=== PATIENT | female | born 1985 | race Caucasian/White ===

== ENCOUNTER 2018-03-25 10:05 | Emergency (ER) | payer SELFPAY ==
--- NOTE | 2018-03-25 11:29 | RAD REPORT ---
EXAM DESCRIPTION: US - Abdomen Exam Limited - 03/25/2018 10:49 am CLINICAL HISTORY: Abdominal pain COMPARISON: None. FINDINGS: No gallstones, sludge or other abnormalities within the gallbladder lumen. There is no wal l thickening or pericholecystic fluid. No common duct stone or biliary tree dilatation identified. IMPRESSION: Normal gallbladder and biliary tree ultrasound.
[2018-03-25] MEDS ORDERED: ONDANSETRON 4 MG/2 ML VIAL ONE (12:19)
[2018-03-25] MEDS ORDERED: MORPHINE 4 MG/ML SYR ONE (12:19)
[2018-03-25] MEDS ORDERED: FAMOTIDINE 20 MG/2 ML VIAL IV ONE (12:19)
[2018-03-25] MEDS ORDERED: NA CHLORIDE 0.9% 1,000 ML ONE (12:35)
[2018-03-25] MEDS ORDERED: DIPHENHYDRAMINE 50 MG/ML VIAL ONE (12:42)
[2018-03-25 12:52] LABS: Absolute Lymphocytes (CBC) 2.1 K/uL (0.7-4.9); Absolute Monocytes 0.5 K/uL (0.1-1.3); Absolute Neutrophil 4.4 K/uL (1.8-8.0); Basophils % 0.5 % (0-1.3); Eosinophils % 2.7 % (0-4.4); Hematocrit 41.4 % (36.0-45.0); Lymphocytes % 29.8 % (15.3-44.8); MCH 32.8 pg (27.0-35.0); MCV 93.5 fL (80-100); MPV 8.3 fL (7.6-11.3); Monocytes % 6.6 % (3.3-12.3); RBC Red Blood Cell Count 4.42 M/uL (3.86-4.86)
[2018-03-25 12:58] LABS: Urine Blood NEGATIVE (NEG); Urine Glucose NEGATIVE (NEG); Urine Protein NEGATIVE (NEG); Urine Specific Gravity 1.015 (1.005-1.030)
[2018-03-25 13:13] LABS: ALT/SGPT 16 U/L (12-78); AST/SGOT 7 U/L (15-37); Albumin 4.1 g/dL (3.4-5.0); Alkaline Phosphatase 53 U/L (45-117); BUN Blood Urea Nitrogen 13 mg/dL (7-18); Bicarbonate 27 mmol/L (21-32); Bilirubin Direct 0.1 mg/dL (0-0.2); Bilirubin Total 0.5 mg/dL (0.2-1.0); Glucose Level 107 mg/dL (74-106); Lipase 153 U/L (73-393); Potassium 3.6 mmol/L (3.5-5.1); Protein, Total 7.7 g/dL (6.4-8.2); Sodium Level 138 mmol/L (136-145)
--- NOTE | 2018-03-25 13:56 | RAD REPORT ---
EXAM DESCRIPTION: CT - Abdomen Pelvis W Contrast - 03/25/2018 1:29 pm CLINICAL HISTORY: Abdominal pain right upper quadrant pain with vomiting COMPARISON: none. TECHNIQUE: Computed axial tomography of the abdomen pelvis was obtained. 100 cc Isovue-300 was admin istered intravenously. Oral contrast was not requested which limits evaluation of bowel. All CT scans are performed using dose optimization technique as appropriate and may include automated exposure control or mA/KV adjustment according to patient size. FINDINGS: The liver, spleen, pancreas, adrenal and right kidney appear unremarkable. A 2 millimeter nonobstructing left renal calculus Vicarious excretion contrast in the gallbladder seen Small umbilical hernia is noted There is no evidence of diverticulitis. A 2 centimeter right ovarian cyst is present without signific ant free-fluid IMPRESSION: A 2 centimeter right ovarian cyst is present without significant free-fluid 2 millimeter nonobstructing left renal calculus
--- NOTE | 2018-03-25 14:06 | EDPHYS ---
Physician Documentation [facility] Name: Kizzy Zamarripa Age: 32 yrs Sex: Female : 1985 Arrival Date: 03/25/2018 Time: 10:09 Bed 15 Private MD: None, None ED Physician Lorenzo Domingo HPI: 03/25 12:56 This 32 yrs old Female presents to ER via Wheelchair with complaints of pm1 Abdominal Pain. 12:56 The patient presents with abdominal pain in the epigastric area. pm1 12:56 Onset: The symptoms/episode began/occurred yesterday. The symptoms do not radiate. pm1 Associated signs and symptoms: Pertinent negatives: nausea, vomiting, and diarrhea. The symptoms are described as achy. Modifying factors: The symptoms are alleviated by nothing, the symptoms are aggravated by food. Severity of pain: in the emergency department the pain is unchanged. The patient has not experienced similar symptoms in the past. The patient has been recently seen by a physician: Seen yesterday at [place] [facility] with the same complaints. Patient had labs and CT performed and was told that she will need her gallbladder removed. Patient was discharged home with pain medications. 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 - Social history:: Smoking status: Patient/guardian denies using tobacco. - Ebola Screening: : Patient negative for fever greater than or equal to 101.5 degrees Fahrenheit, and additional compatible Ebola Virus Disease symptoms Patient denies exposure to infectious person Patient denies travel to an Ebola-affected area in the 21 days before illness onset No symptoms or risks identified at this time. ROS: 12:56 Constitutional: Negative for fever, chills, and weight loss, Eyes: Negative for injury, pm1 pain, redness, and discharge, ENT: Negative for injury, pain, and discharge, Neck: Negative for injury, pain, and swelling, Cardiovascular: Negative for chest pain, palpitations, and edema, Respiratory: Negative for shortness of breath, cough, wheezing, and pleuritic chest pain. 12:56 : Negative for injury, bleeding, discharge, and swelling, MS/Extremity: Negative for injury and deformity, Skin: Negative for injury, rash, and discoloration, Neuro: Negative for headache, weakness, numbness, tingling, and seizure. 12:56 Abdomen/GI: Positive for abdominal pain, Negative for nausea, vomiting, and diarrhea. 12:56 Back: Positive for Right flank pain yesterday, not present today. Exam: 12:56 Constitutional: This is a well developed, well nourished patient who is awake, alert, pm1 and in no acute distress. Head/Face: Normocephalic, atraumatic. Eyes: Pupils equal round and reactive to light, extra-ocular motions intact. Lids and lashes normal. Conjunctiva and sclera are non-icteric and not injected. Cornea within normal limits. Periorbital areas with no swelling, redness, or edema. ENT: Nares patent. No nasal discharge, no septal abnormalities noted. Tympanic membranes are normal and external auditory canals are clear. Oropharynx with no redness, swelling, or masses, exudates, or evidence of obstruction, uvula midline. Mucous membranes moist. Neck: Trachea midline, no thyromegaly or masses palpated, and no cervical lymphadenopathy. Supple, full range of motion without nuchal rigidity, or vertebral point tenderness. No Meningismus. Chest/axilla: Normal chest wall appearance and motion. Nontender with no deformity. No lesions are appreciated. Cardiovascular: Regular rate and rhythm with a normal S1 and S2. No gallops, murmurs, or rubs. Normal PMI, no JVD. No pulse deficits. Respiratory: Lungs have equal breath sounds bilaterally, clear to auscultation and percussion. No rales, rhonchi or wheezes noted. No increased work of breathing, no retractions or nasal flaring. Abdomen/GI: Soft, non-tender, with normal bowel sounds. No distension or tympany. No guarding or rebound. No evidence of tenderness throughout. Back: No spinal tenderness. No costovertebral tenderness. Full range of motion. Skin: Warm, dry with normal turgor. Normal color with no rashes, no lesions, and no evidence of cellulitis. MS/ Extremity: Pulses equal, no cyanosis. Neurovascular intact. Full, normal range of motion. 12:56 Neuro: Orientation: is normal, Motor: is normal, moves all fours. Vital Signs: 10:26 BP 106 / 88; Pulse 92; Resp 18; Temp 98.8; Pulse Ox 100% on R/A; Weight 90.72 kg; aj Height 5 ft. 2 in. (157.48 cm); 13:18 BP 105 / 74; Pulse 65; Resp 16; Pulse Ox 100% on R/A; mh5 14:30 BP 106 / 74; Pulse 74; Resp 16 S; Temp 98.0(TE); Pulse Ox 99% on R/A; aa5 10:26 Body Mass Index 36.58 (90.72 kg, 157.48 cm) aj MDM: 11:52 Patient medically screened. [facility] 14:03 Data reviewed: vital signs. Data interpreted: Pulse oximetry: on room air is 100 %. pm1 Interpretation: normal. Counseling: I had a detailed discussion with the patient and/or guardian regarding: the historical points, exam findings, and any diagnostic results supporting the discharge/admit diagnosis, lab results, radiology results, the need for outpatient follow up, to return to the emergency department if symptoms worsen or persist or if there are any questions or concerns that arise at home. 03/25 12:03 Order name: Basic Metabolic Panel; Complete Time: 13:16 pm1 03/25 12:03 Order name: CBC with Diff; Complete Time: 13:16 pm1 03/25 12:03 Order name: Creatinine for Radiology; Complete Time: 13:16 pm1 03/25 12:03 Order name: Hepatic Function; Complete Time: 13:16 pm1 03/25 12:03 Order name: Lipase; Complete Time: 13:16 pm1 03/25 12:30 Order name: Urine Dipstick--Ancillary (enter results); Complete Time: 13:16 03/25 10:37 Order name: US Abdomen Limited; Complete Time: 11:53 03/25 12:10 Order name: CT Abd/Pelvis - W/Contrast: IV contrast only; Complete Time: 14:00 pm1 03/25 12:30 Order name: Urine --Ancillary (enter results); Complete Time: 13:16 03/25 12:03 Order name: IV Saline Lock; Complete Time: 12:26 pm1 03/25 12:03 Order name: Labs collected and sent; Complete Time: 12:26 pm1 03/25 12:16 Order name: Urine Dipstick-Ancillary (obtain specimen); Complete Time: 12:25 pm1 03/25 12:16 Order name: Urine Test (obtain specimen); Complete Time: 12:25 pm1 Administered Medications: 12:24 Drug: Zofran 4 mg Route: IVP; Site: right antecubital; aa5 12:26 Follow up: Response: No adverse reaction aa5 12:24 Drug: NS 0.9% 1000 ml Route: IV; Rate: 1000 ml; Site: right antecubital; aa5 13:05 Follow up: IV Status: Completed infusion aa5 12:26 Drug: Pepcid 20 mg Route: IVP; Site: right antecubital; aa5 12:27 Follow up: Response: No adverse reaction aa5 12:27 Drug: morphine 4 mg Route: IVP; Site: right antecubital; aa5 12:29 Follow up: Redness noted to upper arm and pt c/o itching to IV site. FINANCIAL MANAGER was notified aa5 12:30 Drug: Benadryl 25 mg Route: IVP; Site: right antecubital; aa5 13:00 Follow up: Response: No adverse reaction; Marked relief of symptoms; Marked relief of aa5 symptoms. No redness noted to right arm and pt denies itching. Disposition: 03/25/18 14:04 Discharged to Home. Impression: Other ovarian cysts - right. - Condition is Stable. - Discharge Instructions: Ovarian Cyst. - Prescriptions for Pepcid 20 mg Oral Tablet - take 1 tablet by ORAL route every 12 hours for 10 days; 20 tablet. Zofran 4 mg Oral Tablet - take 1 tablet by ORAL route every 12 hours As needed; 20 tablet. - Medication Reconciliation Form, Thank You Letter, Prescription Opioid Use form. - Follow up: Emergency Department; When: As needed; Reason: Worsening of condition. Follow up: Private Physician; When: 2 - 3 days; Reason: Recheck today's complaints, Continuance of care, Re-evaluation by your physician. - Problem is new. - Symptoms have improved. Addendum: 03/28/2018 06:46 Co-signature as Attending Physician, Lorenzo Domingo MD I agree with the assessment and c okeefe plan of care. Signatures: Dispatcher [employer] Jolly Meier RN RN Lorenzo Brock MD MD cha Calderon, Audri RN RN aa5 Jerson Cason, IVETTE FINANCIAL MANAGER pm1 Corrections: (The following items were deleted from the chart) 03/25 14:43 14:04 03/25/2018 14:04 Discharged to Home. Impression: Other ovarian cysts - right. aa5 Condition is Stable. Forms are Medication Reconciliation Form, Thank You Letter, Antibiotic Education, Prescription Opioid Use. Follow up: Emergency Department; When: As needed; Reason: Worsening of condition. Follow up: Private Physician; When: 2 - 3 days; Reason: Recheck today's complaints, Continuance of care, Re-evaluation by your physician. Problem is new. Symptoms have improved. pm1
--- NOTE | 2018-03-25 14:06 | ER ---
Nurse's Notes [facility] Name: Kizzy Zamarripa Age: 32 yrs Sex: Female : 1985 Arrival Date: 03/25/2018 Time: 10:09 Bed 15 Private MD: None, None Diagnosis: Other ovarian cysts-right Presentation: 03/25 10:24 Presenting complaint: Patient states: RUQ abdominal pain and vomiting that started last aj night. Seen in [place] ER yesterday. Had CT and labs, instructed to follow up with surgeon to have gallbladder removed. Transition of care: patient was not received from another setting of care. Onset of symptoms was March 24, 2018. Risk Assessment: Do you want to hurt yourself or someone else? Patient reports no desire to harm self or others. Initial Sepsis Screen: Does the patient meet any 2 criteria? No. Patient's initial sepsis screen is negative. Does the patient have a suspected source of infection? No. Patient's initial sepsis screen is negative. Care prior to arrival: None. 10:24 Method Of Arrival: Wheelchair aj 10:24 Acuity: JODI 3 aj Triage Assessment: 10:26 General: Appears in no apparent distress. comfortable, Behavior is calm, cooperative, aj appropriate for age. Pain: Complains of pain in right lower quadrant. Neuro: Level of Consciousness is awake, alert, obeys commands, Oriented to person, place, time, situation, Appropriate for age. Respiratory: Airway is patent Respiratory effort is even, unlabored, Respiratory pattern is regular, symmetrical. GI: Abdomen is flat, non-distended, Reports upper abdominal pain, nausea, vomiting. Derm: Skin is intact, is healthy with good turgor, Skin is pink, warm \T\ dry. normal. 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 - Social history:: Smoking status: Patient/guardian denies using tobacco. - Ebola Screening: : Patient negative for fever greater than or equal to 101.5 degrees Fahrenheit, and additional compatible Ebola Virus Disease symptoms Patient denies exposure to infectious person Patient denies travel to an Ebola-affected area in the 21 days before illness onset No symptoms or risks identified at this time. Screenin:10 Abuse screen: Denies threats or abuse. Nutritional screening: No deficits noted. aa5 Tuberculosis screening: No symptoms or risk factors identified. Fall Risk None identified. Assessment: 12:10 General: Appears uncomfortable, Behavior is calm, cooperative. Pain: Complains of pain aa5 in right upper quadrant Pain does not radiate. Pain currently is 9 out of 10 on a pain scale. Quality of pain is described as sharp, Pain began 1 day ago. Is continuous. Neuro: Level of Consciousness is awake, alert, obeys commands, Oriented to person, place, time, situation. Cardiovascular: Heart tones S1 S2 present Rhythm is regular. Respiratory: Airway is patent Respiratory effort is even, unlabored, Respiratory pattern is regular, symmetrical. GI: Abdomen is round non-distended, Bowel sounds present X 4 quads. Abd is soft X 4 quads Abdomen is tender to palpation in right upper quadrant Reports nausea, vomiting, Patient currently denies diarrhea. : No signs and/or symptoms were reported regarding the genitourinary system. Denies burning with urination. EENT: No signs and/or symptoms were reported regarding the EENT system. Derm: Skin is pink, warm \T\ dry. Musculoskeletal: Range of motion: intact in all extremities. 13:05 Reassessment: Patient and/or family updated on plan of care and expected duration. Pain aa5 level reassessed. Patient is alert, oriented x 3, equal unlabored respirations, skin warm/dry/pink. Patient states feeling better. Pt sitting up in bed using her cellphone. . General: Appears comfortable. Pain: Pain currently is 7 out of 10 on a pain scale. 14:40 Reassessment: Patient is alert, oriented x 3, equal unlabored respirations, skin aa5 warm/dry/pink. Vital Signs: 10:26 BP 106 / 88; Pulse 92; Resp 18; Temp 98.8; Pulse Ox 100% on R/A; Weight 90.72 kg; aj Height 5 ft. 2 in. (157.48 cm); 13:18 BP 105 / 74; Pulse 65; Resp 16; Pulse Ox 100% on R/A; mh5 14:30 BP 106 / 74; Pulse 74; Resp 16 S; Temp 98.0(TE); Pulse Ox 99% on R/A; aa5 10:26 Body Mass Index 36.58 (90.72 kg, 157.48 cm) aj ED Course: 10:09 Patient arrived in ED. mr 10:09 None, None is Private Physician. mr 10:25 Triage completed. aj 10:26 Arm band placed on left wrist. Patient placed in waiting room, Patient notified of wait aj time. 10:49 US Abdomen Limited In Process Unspecified. EDMS 11:46 Raisa Uriarte, KIERAN is Primary Nurse. aa5 11:52 Lorenzo Domingo MD is Attending Physician. [facility] 11:53 Jerson Cason NP is PHCP. pm1 12:10 Patient has correct armband on for positive identification. Placed in gown. Bed in low aa5 position. Call light in reach. Side rails up X2. 12:22 Initial lab(s) drawn, by me, sent to lab. Inserted saline lock: 20 gauge in right aa5 antecubital area, using aseptic technique. Blood collected. 12:24 Radiology exam delayed due to lab results not completed at this time. (BUN/Creatinine). 12:25 Urine collected: clean catch specimen, clear. [facility] 13:25 CT completed. Patient tolerated procedure well. Patient moved to CT via wheelchair. vr Patient moved back from CT. 13:30 CT Abd/Pelvis - W/Contrast: IV contrast only In Process Unspecified. EDMS 14:00 No provider procedures requiring assistance completed. aa5 14:40 IV discontinued, intact, bleeding controlled, No redness/swelling at site. Pressure aa5 dressing applied. Administered Medications: 12:24 Drug: Zofran 4 mg Route: IVP; Site: right antecubital; aa5 12:26 Follow up: Response: No adverse reaction aa5 12:24 Drug: NS 0.9% 1000 ml Route: IV; Rate: 1000 ml; Site: right antecubital; aa5 13:05 Follow up: IV Status: Completed infusion aa5 12:26 Drug: Pepcid 20 mg Route: IVP; Site: right antecubital; aa5 12:27 Follow up: Response: No adverse reaction aa5 12:27 Drug: morphine 4 mg Route: IVP; Site: right antecubital; aa5 12:29 Follow up: Redness noted to upper arm and pt c/o itching to IV site. GUNCOTTON PACKER was notified aa5 12:30 Drug: Benadryl 25 mg Route: IVP; Site: right antecubital; aa5 13:00 Follow up: Response: No adverse reaction; Marked relief of symptoms; Marked relief of aa5 symptoms. No redness noted to right arm and pt denies itching. Intake: Outcome: 14:04 Discharge ordered by . pm1 14:40 Discharged to home ambulatory, with significant other. aa5 14:40 Condition: stable 14:40 Discharge instructions given to patient, Instructed on discharge instructions, follow up and referral plans. medication usage, Demonstrated understanding of instructions, follow-up care, medications, Prescriptions given X 2. 14:43 Patient left the ED. aa5 Signatures: Dispatcher [employer] EDJolly Jarrett RN RN aj Anderson, Corey, MD MD cha Rivera, Mary mr Hagler, Raisa Khan RN RN aa5 Lee Ann Barton Patrick, NP GUNCOTTON PACKER pm1 Maggie Cisse [facility] Corrections: (The following items were deleted from the chart) 15:27 12:10 GI: Abdomen is round non-distended, Bowel sounds present X 4 quads. Abd is soft X aa5 4 quads Abdomen is tender to palpation in right upper quadrant aa5
== END 2018-03-25 14:43 | disposition home or self-care (01) ==
LOC: ER 10:05
DX: N83.291 Other ovarian cyst, right side (principal); Z88.2 Allergy status to sulfonamides
CPT/HCPCS: 36415; 74177; 76705; 80048; 80076; 81003; 81025; 83690; 85025; 96361; 96374; 96375; 99284; J2405; J7030; Q9967

== ENCOUNTER 2019-04-15 20:12 | Emergency (ER) | payer SELFPAY ==
--- NOTE | 2019-04-15 20:53 | ER ---
Nurse's Notes [facility] Name: Kizzy Zamarripa Age: 34 yrs Sex: Female : 1985 Arrival Date: 04/15/2019 Time: 20:13 Bed 5 Private MD: Diagnosis: Pain in left shoulder Presentation: 04/15 20:17 Presenting complaint: Patient states: "it's almost been three weeks ago that I fell jd3 down the stairs and hurt my left shoulder. at first I thought I was just sore, but it's hurting now to the point I can't move my shoulder.". Transition of care: patient was not received from another setting of care. Onset of symptoms was April 15, 2019. Risk Assessment: Do you want to hurt yourself or someone else? Patient reports no desire to harm self or others. Initial Sepsis Screen: Does the patient meet any 2 criteria? No. Patient's initial sepsis screen is negative. Does the patient have a suspected source of infection? No. Patient's initial sepsis screen is negative. Care prior to arrival: None. 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 - Social history:: Smoking status: Patient/guardian denies using tobacco. - Ebola Screening: : Patient negative for fever greater than or equal to 101.5 degrees Fahrenheit, and additional compatible Ebola Virus Disease symptoms. - Family history:: not pertinent. Screenin:34 Abuse screen: Denies threats or abuse. Denies injuries from another. Nutritional lp1 screening: No deficits noted. Tuberculosis screening: No symptoms or risk factors identified. Fall Risk None identified. Assessment: 20:33 General: Appears in no apparent distress. Behavior is appropriate for age. Pain: lp1 Complains of pain in left shoulder Pain currently is 7 out of 10 on a pain scale. Quality of pain is described as aching, Aggravated by increased activity, repositioning. Neuro: No deficits noted. Cardiovascular: No deficits noted. Respiratory: No deficits noted. GI: No deficits noted. : No deficits noted. EENT: No signs and/or symptoms were reported regarding the EENT system. Derm: Skin is pink, warm \\T\\ dry. Musculoskeletal: Circulation, motion, and sensation intact. Range of motion: limited in left shoulder. Vital Signs: 20:20 BP 117 / 84; Pulse 101; Resp 17 S; Temp 98.6(TE); Pulse Ox 100% on R/A; Weight 63.5 kg jd3 (R); Height 5 ft. 2 in. (157.48 cm) (R); Pain 7/10; 20:20 Body Mass Index 25.61 (63.50 kg, 157.48 cm) jd3 ED Course: 20:13 Patient arrived in ED. ds1 20:14 Cindy Ford, RN is Primary Nurse. lp1 20:17 Lorenzo Domingo MD is Attending Physician. [facility] 20:18 Triage completed. jd3 20:21 Arm band placed on. jd3 20:34 Sling applied to left arm. lp1 20:36 Patient has correct armband on for positive identification. lp1 20:46 Shoulder Left (2 View) XRAY In Process Unspecified. EDMS 20:53 Daniel Brown MD is Referral Physician. [facility] 21:08 No provider procedures requiring assistance completed. Patient did not have IV access lp1 during this emergency room visit. Administered Medications: 20:50 Not Given (Patient states taking Ibuprofen 800 mg tab FLIGHT PARAMEDIC): Motrin 600 mg PO once lp1 Outcome: 20:53 Discharge ordered by . [facility] 21:08 Discharged to home ambulatory. lp1 21:08 Condition: good 21:08 Discharge instructions given to patient, Instructed on discharge instructions, follow up and referral plans. medication usage, Demonstrated understanding of instructions, follow-up care, medications, Prescriptions given X 3. 21:08 Patient left the ED. lp1 Signatures: Dispatcher [employer] EDPR Lorenzo Domingo MD MD cha Sanford, Demi ds1 Cindy Ford, RN RN lp1 Bill Craig RN RN jd3
--- NOTE | 2019-04-15 20:54 | EDPHYS ---
Physician Documentation [facility] Name: Kizzy Zamarripa Age: 34 yrs Sex: Female : 1985 Arrival Date: 04/15/2019 Time: 20:13 Bed 5 Private MD: ED Physician Lorenzo Domingo HPI: 04/15 20:30 This 34 yrs old Female presents to ER via Ambulatory with complaints of rona Shoulder Pain. 20:30 The patient or guardian complains of decreased range of motion, pain. left shoulder. rona Context: The problem was sustained outdoors, resulted from a fall, The patient experiences decreased range of motion, The patient reports no obvious deformity. Onset: The symptoms/episode began/occurred 3 week(s) ago. Modifying factors: the symptoms are alleviated by nothing. remaining still, shoulder immobilizer, The symptoms are aggravated by movement. Associated signs and symptoms: The patient has no apparent associated signs or symptoms. Severity of symptoms: At their worst the symptoms were mild, moderate, in the emergency department the symptoms are unchanged. Treatment prior to arrival includes: no previous treatment. The patient has not experienced similar symptoms in the past. 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 - Social history:: Smoking status: Patient/guardian denies using tobacco. - Ebola Screening: : Patient negative for fever greater than or equal to 101.5 degrees Fahrenheit, and additional compatible Ebola Virus Disease symptoms. - Family history:: not pertinent. ROS: 20:30 Constitutional: Negative for fever, chills, and weight loss, Eyes: Negative for injury, rona pain, redness, and discharge, ENT: Negative for injury, pain, and discharge, Neck: Negative for injury, pain, and swelling, Cardiovascular: Negative for chest pain, palpitations, and edema, Respiratory: Negative for shortness of breath, cough, wheezing, and pleuritic chest pain, Abdomen/GI: Negative for abdominal pain, nausea, vomiting, diarrhea, and constipation, Back: Negative for injury and pain, : Negative for injury, bleeding, discharge, and swelling, Skin: Negative for injury, rash, and discoloration, Neuro: Negative for headache, weakness, numbness, tingling, and seizure, Psych: Negative for depression, anxiety, suicide ideation, homicidal ideation, and hallucinations, Allergy/Immunology: Negative for hives, rash, and allergies, Endocrine: Negative for neck swelling, polydipsia, polyuria, polyphagia, and marked weight changes, Hematologic/Lymphatic: Negative for swollen nodes, abnormal bleeding, and unusual bruising. 20:30 MS/extremity: Positive for decreased range of motion, pain, tenderness, of the anterior aspect of left shoulder and posterior aspect of left shoulder. Exam: 20:30 Constitutional: This is a well developed, well nourished patient who is awake, alert, rona and in no acute distress. Head/Face: Normocephalic, atraumatic. Eyes: Pupils equal round and reactive to light, extra-ocular motions intact. Lids and lashes normal. Conjunctiva and sclera are non-icteric and not injected. Cornea within normal limits. Periorbital areas with no swelling, redness, or edema. ENT: Nares patent. No nasal discharge, no septal abnormalities noted. Tympanic membranes are normal and external auditory canals are clear. Oropharynx with no redness, swelling, or masses, exudates, or evidence of obstruction, uvula midline. Mucous membranes moist. Neck: Trachea midline, no thyromegaly or masses palpated, and no cervical lymphadenopathy. Supple, full range of motion without nuchal rigidity, or vertebral point tenderness. No Meningismus. Chest/axilla: Normal chest wall appearance and motion. Nontender with no deformity. No lesions are appreciated. Cardiovascular: Regular rate and rhythm with a normal S1 and S2. No gallops, murmurs, or rubs. Normal PMI, no JVD. No pulse deficits. Respiratory: Lungs have equal breath sounds bilaterally, clear to auscultation and percussion. No rales, rhonchi or wheezes noted. No increased work of breathing, no retractions or nasal flaring. Abdomen/GI: Soft, non-tender, with normal bowel sounds. No distension or tympany. No guarding or rebound. No evidence of tenderness throughout. Back: No spinal tenderness. No costovertebral tenderness. Full range of motion. Female : Normal external genitalia. Skin: Warm, dry with normal turgor. Normal color with no rashes, no lesions, and no evidence of cellulitis. Neuro: Awake and alert, GCS 15, oriented to person, place, time, and situation. Cranial nerves II-XII grossly intact. Motor strength 5/5 in all extremities. Sensory grossly intact. Cerebellar exam normal. Normal gait. Psych: Awake, alert, with orientation to person, place and time. Behavior, mood, and affect are within normal limits. 20:30 Musculoskeletal/extremity: Extremities: grossly normal except: noted in the left arm and posterior aspect of left shoulder and anterior aspect of left shoulder and left shoulder: decreased ROM, pain. Vital Signs: 20:20 BP 117 / 84; Pulse 101; Resp 17 S; Temp 98.6(TE); Pulse Ox 100% on R/A; Weight 63.5 kg jd3 (R); Height 5 ft. 2 in. (157.48 cm) (R); Pain 7/10; 20:20 Body Mass Index 25.61 (63.50 kg, 157.48 cm) jd3 MDM: 20:17 Patient medically screened. 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 Impression: Pain in left shoulder. - Condition is Stable. - Discharge Instructions: Arthritis, Shoulder Pain, Shoulder Range of Motion Exercises, Shoulder Pain, [id number]. - Prescriptions for Tylenol- Codeine #3 300-30 mg Oral Tablet - take 2 tablet by ORAL route every 6 hours As needed; 30 tablet. Motrin IB 200 mg Oral Tablet - take 3 tablet by ORAL route every 6 hours As needed as needed with food; 40 tablet. Valium 5 mg Oral Tablet - take 1 tablet by ORAL route every 8 hours As needed; 9 tablet. - Medication Reconciliation Form, Thank You Letter, Antibiotic Education, Prescription Opioid Use form. - Follow up: Private Physician; When: 2 - 3 days; Reason: Recheck today's complaints, Continuance of care, Re-evaluation by your physician. Follow up: Daniel Brown; When: 2 - 3 days; Reason: Recheck today's complaints, Continuance of care, Re-evaluation by your physician. - Problem is new. - Symptoms have improved. Signatures: Dispatcher [employer]DA[employer] Lorenzo Domingo MD MD cha Pena, Laura RN RN lp1 Bill Craig RN RN jd3 Corrections: (The following items were deleted from the chart) 21:08 20:53 04/15/2019 20:53 Discharged to Home. Impression: Pain in left shoulder. Condition lp1 is Stable. Discharge Instructions: Arthritis, Shoulder Pain, Shoulder Range of Motion Exercises, Shoulder Pain, [id number]. Prescriptions for Tylenol-Codeine #3 300-30 mg Oral Tablet - take 2 tablet by ORAL route every 6 hours As needed; 30 tablet, Motrin IB 200 mg Oral Tablet - take 3 tablet by ORAL route every 6 hours As needed as needed with food; 40 tablet. and Forms are Medication Reconciliation Form, Thank You Letter, Antibiotic Education, Prescription Opioid Use. Follow up: Private Physician; When: 2 - 3 days; Reason: Recheck today's complaints, Continuance of care, Re-evaluation by your physician. Follow up: Daniel Brown; When: 2 - 3 days; Reason: Recheck today's complaints, Continuance of care, Re-evaluation by your physician. Problem is new. Symptoms have improved. rona
[2019-04-15 21:14] VITALS: BP 117/84; TEMP 98.6; O2SAT 100
--- NOTE | 2019-04-16 13:13 | RAD REPORT ---
EXAM DESCRIPTION: RAD - Shoulder Left 2 View - 04/15/2019 8:47 pm CLINICAL HISTORY: PAIN COMPARISON: No comparisons FINDINGS: No acute fracture or dislocation seen.
== END 2019-04-15 21:08 | disposition home or self-care (01) ==
LOC: ER 20:12
DX: M25.512 Pain in left shoulder (principal); Z88.0 Allergy status to penicillin; Z88.2 Allergy status to sulfonamides
CPT/HCPCS: 99283

== ENCOUNTER 2019-10-10 14:24 | Emergency (ER) | payer SELFPAY ==
[2019-10-10] MEDS ORDERED: HYDROCODONE/APAP 10/325 TAB ONE (15:38)
[2019-10-10 16:12] VITALS: BP 141/86; TEMP 98.1; O2SAT 98
--- NOTE | 2019-10-16 13:24 | EDPHYS ---
Physician Documentation [facility] Name: Kizzy Zamarripa Age: 34 yrs Sex: Female : 1985 Arrival Date: 10/10/2019 Time: 14:27 Bed 24 Private MD: None, None ED Physician Donnell Muller HPI: 10/09 15:20 This 34 yrs old Female presents to ER via Ambulatory with complaints of pm1 Dental pain. 15:20 The patient presents with pain. The problem is located in the upper left second molar, pm1 lower left second molar and lower right third molar. Onset: The symptoms/episode began/occurred this morning, dental issues present about 1 year ago and pain subsided. Dental pain with awakening this AM. Duration: The symptoms are continuous. Modifying factors: The symptoms are alleviated by nothing, the symptoms are aggravated by nothing. Associated signs and symptoms: Pertinent negatives: chills, dysphagia, fever, inability to eat, swelling, vomiting. Severity of symptoms: in the emergency department the symptoms are actually worse. The patient has not recently seen a physician. 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 - Social history:: Smoking status: Patient/guardian denies using tobacco, the patient reports quitting approximately 1 years ago. ROS: 15:20 Constitutional: Negative for fever, chills, and weight loss. pm1 15:20 Neck: Negative for injury, pain, and swelling, Cardiovascular: Negative for chest pain, palpitations, and edema, Respiratory: Negative for shortness of breath, cough, wheezing, and pleuritic chest pain, Abdomen/GI: Negative for abdominal pain, nausea, vomiting, diarrhea, and constipation, Back: Negative for injury and pain, MS/Extremity: Negative for injury and deformity, Skin: Negative for injury, rash, and discoloration, Neuro: Negative for headache, weakness, numbness, tingling, and seizure. 15:20 ENT: Positive for dental pain, ear pain, Negative for sore throat, difficulty swallowing, difficulty handling secretions, hoarseness. Exam: 15:20 Constitutional: This is a well developed, well nourished patient who is awake, alert, pm1 and in no acute distress. Head/Face: Normocephalic, atraumatic. 15:20 Neck: Trachea midline, no thyromegaly or masses palpated, and no cervical lymphadenopathy. Supple, full range of motion without nuchal rigidity, or vertebral point tenderness. No Meningismus. Chest/axilla: Normal chest wall appearance and motion. Nontender with no deformity. No lesions are appreciated. 15:20 Skin: Warm, dry with normal turgor. Normal color with no rashes, no lesions, and no evidence of cellulitis. MS/ Extremity: Pulses equal, no cyanosis. Neurovascular intact. Full, normal range of motion. 15:20 ENT: External ear(s): are unremarkable, Ear canal(s): are normal, TM's: are normal, Mouth: is normal, no abscess, no drooling, (-) tongue elevation (-) trismus no acute changes, Lips: normal, Oral mucosa: normal, pink and intact, moist, Gums: normal with healthy appearance, Tongue: is normal. 15:20 Cardiovascular: Exam negative for acute changes, Rate: normal, Rhythm: regular, Pulses: no pulse deficits are appreciated. 15:20 Respiratory: Exam negative for acute changes, respiratory distress, shortness of breath, wheezing. 15:20 Abdomen/GI: Exam negative for acute changes, Inspection: abdomen appears normal, Palpation: abdomen is soft and non-tender, in all quadrants. 15:20 Neuro: Exam negative for acute changes, Orientation: is normal, Mentation: is normal, Motor: is normal, moves all fours. Vital Signs: 14:42 BP 141 / 86; Pulse 110; Resp 18; Temp 98.1; Pulse Ox 98% ; Weight 86.18 kg; Height 5 iw ft. 2 in. (157.48 cm); Pain 10/10; 14:42 Body Mass Index 34.75 (86.18 kg, 157.48 cm) iw MDM: 15:13 Patient medically screened. pm1 15:19 Data reviewed: vital signs. Data interpreted: Pulse oximetry: on room air is 98 %. pm1 Interpretation: normal. Counseling: I had a detailed discussion with the patient and/or guardian regarding: the historical points, exam findings, and any diagnostic results supporting the discharge/admit diagnosis, the need for outpatient follow up, for definitive care, a dentist, to return to the emergency department if symptoms worsen or persist or if there are any questions or concerns that arise at home. 15:20 ED course: COMMUNITY HEALTH NURSE STAFF aware reviewed. pm1 15:20 ED course: Patient with allergies to PCN and sulfa, therefore will discharge patient pm1 home with clindamycin and for follow up with dentist. Administered Medications: 15:34 Drug: [place] 10 mg-325 mg 1 tabs Route: PO; ah Disposition: 15:54 Co-signature as Attending Physician, Donnell Muller MD. rn Disposition: 10/10/19 15:20 Discharged to Home. Impression: Dental caries. - Condition is Stable. - Discharge Instructions: Dental Pain. - Prescriptions for Clindamycin HCl 300 mg Oral Capsule - take 1 capsule by ORAL route every 6 hours for 10 days; 40 capsule. Tylenol- Codeine #3 300-30 mg Oral Tablet - take 2 tablets by ORAL route every 6 hours As needed; 20 tablet. - Medication Reconciliation Form, Thank You Letter, Antibiotic Education, Prescription Opioid Use form. - Follow up: Emergency Department; When: As needed; Reason: Worsening of condition. Follow up: Private Physician; When: 2 - 3 days; Reason: Recheck today's complaints, Continuance of care, Re-evaluation by your physician. - Problem is new. - Symptoms have improved. Signatures: Priscilla Roblero RN RN Donnell Muller MD MD rn Calderon, Audri RN RN aa5 Jerson Cason NP MOCK UP BUILDER pm1 Karen Navarro RN RN Corrections: (The following items were deleted from the chart) 15:51 15:20 10/10/2019 15:20 Discharged to Home. Impression: Dental caries. Condition is ah Stable. Forms are Medication Reconciliation Form, Thank You Letter, Antibiotic Education, Prescription Opioid Use. Follow up: Emergency Department; When: As needed; Reason: Worsening of condition. Follow up: Private Physician; When: 2 - 3 days; Reason: Recheck today's complaints, Continuance of care, Re-evaluation by your physician. Problem is new. Symptoms have improved. pm1
--- NOTE | 2019-10-16 13:24 | ER ---
Nurse's Notes [facility] Name: Kizzy Zamarripa Age: 34 yrs Sex: Female : 1985 Arrival Date: 10/10/2019 Time: 14:27 Bed 24 Private MD: None, None Diagnosis: Dental caries Presentation: 10/09 14:42 Chief complaint: Patient states: pain to left upper and lower teeth, has several broken iw teeth, woke up in extreme pain this morning. Coronavirus screen: Proceed with normal triage. Patient denies a cough. Patient denies shortness of breath or difficulty breathing. Patient denies measured and/or subjective temperature greater than 100.4F prior to today's visit. Patient denies travel on a cruise ship or to a country the [facility]NOTE 3] currently lists as an affected area. Patient denies contact with known and/or suspected case of COVID-19. Ebola Screen: Patient negative for fever greater than or equal to 101.5 degrees Fahrenheit, and additional compatible Ebola Virus Disease symptoms Patient denies exposure to infectious person. Patient denies travel to an Ebola-affected area in the 21 days before illness onset. No symptoms or risks identified at this time. Initial Sepsis Screen: Does the patient meet any 2 criteria? No. Patient's initial sepsis screen is negative. Does the patient have a suspected source of infection? No. Patient's initial sepsis screen is negative. Risk Assessment: Do you want to hurt yourself or someone else? Patient reports no desire to harm self or others. Onset of symptoms was October 10, 2019. 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 - Social history:: Smoking status: Patient/guardian denies using tobacco, the patient reports quitting approximately 1 years ago. Screenin:21 Abuse screen: Denies threats or abuse. Denies injuries from another. Nutritional iw screening: No deficits noted. Tuberculosis screening: No symptoms or risk factors identified. Fall Risk None identified. Assessment: 15:20 General: Appears uncomfortable, Behavior is cooperative, anxious. Pain: Complains of iw pain in left cheek and left jaw Pain currently is 10 out of 10 on a pain scale. Neuro: Level of Consciousness is awake, alert, obeys commands, Oriented to person, place, time, situation, Moves all extremities. Cardiovascular: Patient's skin is warm and dry. Respiratory: Respiratory effort is even, unlabored, Respiratory pattern is regular. Derm: Skin is intact, is healthy with good turgor. Musculoskeletal: Range of motion: intact in all extremities. Vital Signs: 14:42 BP 141 / 86; Pulse 110; Resp 18; Temp 98.1; Pulse Ox 98% ; Weight 86.18 kg; Height 5 iw ft. 2 in. (157.48 cm); Pain 10/10; 14:42 Body Mass Index 34.75 (86.18 kg, 157.48 cm) iw ED Course: 14:27 Patient arrived in ED. mr 14:27 None, None is Private Physician. mr 14:43 Triage completed. iw 14:44 Arm band placed on. iw 15:13 Jerson Cason NP is PHCP. pm1 15:13 Donnell Muller MD is Attending Physician. pm1 15:21 Patient has correct armband on for positive identification. iw 15:29 Karen Navarro, RN is Primary Nurse. 15:51 No provider procedures requiring assistance completed. Patient did not have IV access ah during this emergency room visit. Administered Medications: 15:34 Drug: [place] 10 mg-325 mg 1 tabs Route: PO; Outcome: 15:20 Discharge ordered by . pm1 15:50 Discharged to home ambulatory. 15:50 Condition: good 15:50 Discharge instructions given to patient, Instructed on discharge instructions, follow up and referral plans. medication usage, Demonstrated understanding of instructions, follow-up care, medications, Prescriptions given X 2. 15:51 Patient left the ED. Signatures: Octavia Cowan Irene, RN RN Jerson Cason NP PESTICIDE CHEMIST pm1 Karen Navarro RN RN
== END 2019-10-10 15:51 | disposition home or self-care (01) ==
LOC: ER 14:24
DX: K02.9 Dental caries, unspecified (principal); Z88.0 Allergy status to penicillin; Z88.2 Allergy status to sulfonamides; Z87.891 Personal history of nicotine dependence
CPT/HCPCS: 99283

== ENCOUNTER 2020-05-27 09:31 | Emergency (ER) | payer SELFPAY ==
[2020-05-27] MEDS ORDERED: HYDROCODONE/APAP 10/325 TAB ONE (12:46)
[2020-05-27] MEDS ORDERED: LIDOCAINE VISCOUS 2% SOLN 15 ML UDC ONE (13:08)
--- NOTE | 2020-05-27 13:14 | ER ---
Nurse's Notes [facility] Name: Kizzy Zamarripa Age: 35 yrs Sex: Female : 1985 Arrival Date: 05/27/2020 Time: 09:34 Bed 28 Private MD: Diagnosis: Puncture wound with foreign body of left cheek and temporomandibular area;Cellulitis of face-left cheek Presentation: 05/27 09:42 Chief complaint: Patient states: L sided facial swelling that began yesterday. Pt ss reports she got the L side of her cheek pierced two days ago. Coronavirus screen: Client denies travel out of the [place] in the last 14 days. Ebola Screen: Patient denies exposure to infectious person. Patient denies travel to an Ebola-affected area in the 21 days before illness onset. Initial Sepsis Screen: Does the patient meet any 2 criteria? No. Patient's initial sepsis screen is negative. Does the patient have a suspected source of infection? No. Patient's initial sepsis screen is negative. Risk Assessment: Do you want to hurt yourself or someone else? Patient reports no desire to harm self or others. Onset of symptoms was May 26, 2020. 09:42 Method Of Arrival: Ambulatory 09:42 Acuity: JODI 3 ss Historical: - Allergies: 09:44 PENICILLINS; ss 09:44 Sulfa (Sulfonamide Antibiotics); ss - Home Meds: 09:44 None [Active]; ss - PMHx: 09:44 None; ss - PSHx: 09:44 Tubal ligation; ss - Immunization history:: Adult Immunizations up to date. - Social history:: Smoking status: Reported history of juuling and/or vaping. Screenin:20 Abuse screen: Denies threats or abuse. Nutritional screening: No deficits noted. vg1 Tuberculosis screening: No symptoms or risk factors identified. Fall Risk None identified. Assessment: 12:20 General: Appears in no apparent distress. comfortable, Behavior is calm, cooperative. vg1 Pain: Complains of pain in left cheek and left eye. Pain currently is 10 out of 10 on a pain scale. Pain began yesterday. Neuro: Level of Consciousness is awake, alert, obeys commands, Oriented to person, place, time, situation. Cardiovascular: Patient's skin is warm and dry. Respiratory: Reports cant breath through nose. Airway is patent Respiratory effort is even, unlabored, Respiratory pattern is regular, symmetrical. GI: No signs and/or symptoms were reported involving the gastrointestinal system. : No signs and/or symptoms were reported regarding the genitourinary system. EENT: Nares are clear Oral mucosa is moist. Derm: left cheek and left eye swollen. Redness noted on left cheek. Musculoskeletal: Circulation, motion, and sensation intact. Vital Signs: 09:42 BP 119 / 62; Pulse 95; Resp 15; Temp 98.1(TE); Pulse Ox 100% on R/A; Height 5 ft. 2 in. ss (157.48 cm); Pain 8/10; 12:25 BP 110 / 66; Pulse 75; Resp 18; Pulse Ox 100% on R/A; vg1 13:08 BP 118 / 77; Pulse 70; Resp 16; Pulse Ox 100% on R/A; vg1 ED Course: 09:34 Patient arrived in ED. rg4 09:44 Triage completed. ss 09:44 Arm band placed on right wrist. ss 09:48 Lary Castellanos FNP-C is PHCP. kb 09:48 Franco Negrete MD is Attending Physician. kb 12:12 Lee Ann Ruiz, RN is Primary Nurse. vg1 12:20 Patient has correct armband on for positive identification. Bed in low position. Call vg1 light in reach. 13:09 Cheek piercing removal. vg1 13:23 Patient did not have IV access during this emergency room visit. vg1 Administered Medications: 12:35 Drug: [place] 10 mg-325 mg 1 tabs {Note: rass 0.} Route: PO; vg1 13:22 Follow up: Response: No adverse reaction; RASS: Alert and Calm (0) vg1 12:35 Drug: Clindamycin 300 mg Route: PO; vg1 13:22 Follow up: Response: No adverse reaction vg1 12:57 Drug: Viscous Lidocaine Liquid (4 %) 5 ml Route: Mucous Membrane; vg1 13:22 Follow up: Response: No adverse reaction vg1 Outcome: 13:13 Discharge ordered by . kb 13:22 Discharged to home ambulatory. vg1 13:22 Condition: stable 13:22 Discharge instructions given to patient, Instructed on discharge instructions, follow up and referral plans. medication usage, Demonstrated understanding of instructions, follow-up care, medications, Prescriptions given X 2. 13:24 Patient left the ED. vg1 Signatures: Lary Castellanos FNP-C FNP-Ckb Smirch, Shelby RN RN ss Kiah Ruiz4 Lee Ann Ruiz RN RN vg1 Corrections: (The following items were deleted from the chart) 09:47 09:42 Pulse 95bpm; Resp 15bpm; Pulse Ox 100% RA; Temp 98.1F Temporal; Height 5 ft. 2 ss in.; Pain 8/10; ss
--- NOTE | 2020-05-27 13:14 | EDPHYS ---
Physician Documentation [facility] Name: Kizzy Zamarripa Age: 35 yrs Sex: Female : 1985 Arrival Date: 05/27/2020 Time: 09:34 Bed 28 Private MD: ED Physician Franco Negrete HPI: 05/27 10:36 This 35 yrs old Female presents to ER via Ambulatory with complaints of kb Facial Swelling. 10:40 the patient presents with a swollen area of the left cheek. Description: swollen. kb Onset: The symptoms/episode began/occurred yesterday. Possible cause(s): piercing. Associated signs and symptoms: Pertinent positives: swelling, Pertinent negatives: discharge, drainage, erythema, foreign body sensation, fever, headache, nausea, shortness of breath, vomiting. Modifying factors: the symptoms are alleviated by nothing, the symptoms are aggravated by pressure, touching. Severity of symptoms: At their worst the symptoms were moderate, in the emergency department the symptoms are unchanged. The patient has experienced a previous episode. The patient has not recently seen a physician. Pt reports she got her cheek pierced 2 days ago and it started swelling yesterday. . Historical: - Allergies: 09:44 PENICILLINS; ss 09:44 Sulfa (Sulfonamide Antibiotics); ss - Home Meds: 09:44 None [Active]; ss - PMHx: 09:44 None; ss - PSHx: 09:44 Tubal ligation; ss - Immunization history:: Adult Immunizations up to date. - Social history:: Smoking status: Reported history of juuling and/or vaping. ROS: 10:27 Constitutional: Negative for fever, chills, and weight loss, Cardiovascular: Negative kb for chest pain, palpitations, and edema, Respiratory: Negative for shortness of breath, cough, wheezing, and pleuritic chest pain, Abdomen/GI: Negative for abdominal pain, nausea, vomiting, diarrhea, and constipation, MS/Extremity: Negative for injury and deformity, Neuro: Negative for headache, weakness, numbness, tingling, and seizure. 10:27 Skin: Positive for swelling, of the left cheek. Exam: 10:27 Constitutional: This is a well developed, well nourished patient who is awake, alert, kb and in no acute distress. Chest/axilla: Normal chest wall appearance and motion. Nontender with no deformity. No lesions are appreciated. Cardiovascular: Regular rate and rhythm with a normal S1 and S2. No gallops, murmurs, or rubs. Normal PMI, no JVD. No pulse deficits. Respiratory: Lungs have equal breath sounds bilaterally, clear to auscultation and percussion. No rales, rhonchi or wheezes noted. No increased work of breathing, no retractions or nasal flaring. Abdomen/GI: Soft, non-tender, with normal bowel sounds. No distension or tympany. No guarding or rebound. No evidence of tenderness throughout. MS/ Extremity: Pulses equal, no cyanosis. Neurovascular intact. Full, normal range of motion. Neuro: Awake and alert, GCS 15, oriented to person, place, time, and situation. Cranial nerves II-XII grossly intact. Motor strength 5/5 in all extremities. Sensory grossly intact. Cerebellar exam normal. Normal gait. 10:27 Head/face: Noted is no obvious of injury or deformity except swelling, that is moderate, of the left cheek, tenderness, that is moderate, of the left cheek. Vital Signs: 09:42 BP 119 / 62; Pulse 95; Resp 15; Temp 98.1(TE); Pulse Ox 100% on R/A; Height 5 ft. 2 in. ss (157.48 cm); Pain 8/10; 12:25 BP 110 / 66; Pulse 75; Resp 18; Pulse Ox 100% on R/A; vg1 13:08 BP 118 / 77; Pulse 70; Resp 16; Pulse Ox 100% on R/A; vg1 Procedures: 13:12 Foreign Body Removal: piece of jewelry, from the left left cheek, by using a hemostat, kb Dressinx4s were used to dress the wound, The patient tolerated the removal well. MDM: 09:49 Patient medically screened. kb 10:27 Data reviewed: vital signs, nurses notes. Data interpreted: Pulse oximetry: on room air kb is 100 %. Interpretation: normal. 12:58 Counseling: I had a detailed discussion with the patient and/or guardian regarding: the kb historical points, exam findings, and any diagnostic results supporting the discharge/admit diagnosis, the need for outpatient follow up, a family practitioner, to return to the emergency department if symptoms worsen or persist or if there are any questions or concerns that arise at home. Administered Medications: 12:35 Drug: Willow 10 mg-325 mg 1 tabs {Note: rass 0.} Route: PO; vg1 13:22 Follow up: Response: No adverse reaction; RASS: Alert and Calm (0) vg1 12:35 Drug: Clindamycin 300 mg Route: PO; vg1 13:22 Follow up: Response: No adverse reaction vg1 12:57 Drug: Viscous Lidocaine Liquid (4 %) 5 ml Route: Mucous Membrane; vg1 13:22 Follow up: Response: No adverse reaction vg1 Disposition: 05/28 07:28 Co-signature as Attending Physician, Franco Negrete MD I agree with the assessment and kdr plan of care. Disposition: 05/27/20 13:13 Discharged to Home. Impression: Puncture wound with foreign body of left cheek and temporomandibular area, Cellulitis of face - left cheek. - Condition is Stable. - Discharge Instructions: Cellulitis, Adult, [id number]. - Prescriptions for Clindamycin HCl 300 mg Oral Capsule - take 1 capsule by ORAL route every 6 hours for 10 days; 40 capsule. Ibuprofen 800 mg Oral Tablet - take 1 tablet by ORAL route every 8 hours As needed take with food; 30 tablet. - Medication Reconciliation Form, Thank You Letter, Antibiotic Education, Prescription Opioid Use form. - Follow up: Emergency Department; When: As needed; Reason: Worsening of condition. Follow up: Private Physician; When: 2 - 3 days; Reason: Recheck today's complaints, Continuance of care, Re-evaluation by your physician. Signatures: Lary Castellanos, DANIEL-C CONCESSION STAND ATTENDANT-Franco Valadez MD MD kdr Smirch, Shelby, RN RN ss Garcia, Victoria, RN RN vg1 Corrections: (The following items were deleted from the chart) 05/27 13:24 13:13 05/27/2020 13:13 Discharged to Home. Impression: Puncture wound with foreign body vg1 of left cheek and temporomandibular area; Cellulitis of face - left cheek. Condition is Stable. Discharge Instructions: Cellulitis, Adult, [id number]. Prescriptions for Clindamycin HCl 300 mg Oral Capsule - take 1 capsule by ORAL route every 6 hours for 10 days; 40 capsule, Ibuprofen 800 mg Oral Tablet - take 1 tablet by ORAL route every 8 hours As needed take with food; 30 tablet. and Forms are Medication Reconciliation Form, Thank You Letter, Antibiotic Education, Prescription Opioid Use. Follow up: Emergency Department; When: As needed; Reason: Worsening of condition. Follow up: Private Physician; When: 2 - 3 days; Reason: Recheck today's complaints, Continuance of care, Re-evaluation by your physician. kb
[2020-05-27 13:29] VITALS: TEMP 98.1; O2SAT 100
[2020-05-27 13:31] VITALS: BP 118/77
== END 2020-05-27 13:24 | disposition home or self-care (01) ==
LOC: ER 09:31
DX: L03.211 Cellulitis of face (principal); S01.442A Puncture wound with foreign body of left cheek and temporomandibular area, initial encounter; F17.290 Nicotine dependence, other tobacco product, uncomplicated; W26.8XXA Contact with other sharp object(s), not elsewhere classified, initial encounter
CPT/HCPCS: 99283

== ENCOUNTER → 2023-06-01 | Emergency (ER) | payer SELFPAY ==
[~2023-06-01] MED LIST: CYCLOBENZAPRINE 10 MG TAB ONE; HYDROCODONE/APAP 5/325 MG TAB ONE
--- NOTE | 2023-06-01 15:35 | RAD REPORT ---
EXAM DESCRIPTION: CT - Head C Spine Cap Keyla Con - 06/01/2023 2:34 pm CLINICAL HISTORY: fall, head/neck/back/chest pain COMPARISON: No comparisons TECHNIQUE: Head and cervical spine CT images were obtained without IV contrast. Chest, abdomen, and pelvis CT images were obtained without IV contrast. Multiplanar reformats were generated and reviewed . All CT scans are performed using dose optimization technique as appropriate and may include automated exposure control or mA/KV adjustment according to patient size. FINDINGS: CT HEAD: No intracranial hemorrhage, mass effect, or edema. No evidence of acute territorial infarct. No midli ne shift or abnormal fluid collection. The ventricles are normal in caliber and configuration for age . Basal cisterns are patent. Right maxillary mucosal thickening with small air fluid level. No acute skull fracture. CT CERVICAL SPINE: No acute cervical spine fracture or subluxation. Vertebral body heights are well maintained. Facet rafal ints are normal in alignment. No hyperattenuating canal hematoma. Prevertebral and paraspinous soft t issues are unremarkable. CT CHEST: No pneumothorax, pulmonary contusion or pleural fluid collection. No mediastinal hematoma and the aor ta and pulmonary arteries are unremarkable. No chest will mass or abnormal axillary finding. No displ aced rib fracture or other significant bony finding. CT ABDOMEN/ PELVIS: No evidence of traumatic injury to solid abdominal viscera. Gallbladder and biliary tree are unremark able. No bowel injury or significant finding. 4 mm left lower renal pole calculus. No free air, free fluid or abnormal fat stranding. No urinary bladder abnormality. No significant bony finding. IMPRESSION: No acute traumatic findings. Incidental findings including 4 mm left lower renal pole nonobstructing calculus.
--- NOTE | 2023-06-01 15:45 | EDPHYS ---
Physician Documentation [facility] Name: Kizzy Zamarripa Age: 38 yrs Sex: Female : 1985 Arrival Date: 06/01/2023 Time: 13:52 Bed 8 Private MD: ED Physician Donnell Muller HPI: 06/01 14:49 This 38 yrs old Female presents to ER via Ambulatory with complaints of Head rn Injury-Adult. 14:49 The patient or guardian reports injury, pain. The complaints affect the right side of rn the back of head and right occipital area. Onset: The symptoms/episode began/occurred last night. Associated signs and symptoms: Loss of consciousness: This patient did not experience any loss of consciousness. Pertinent negatives: dazed, double vision, incontinence, seizure, shortness of breath, vomiting, weakness in extremities, generalized weakness. Severity of symptoms: At their worst the symptoms were mild, in the emergency department the symptoms are unchanged. The patient has not experienced similar symptoms in the past. Patient reports son involved in car accident last night, went out to the road to check on him, slipped on ice, fell on back and hit the back of head. No LOC. Does not take blood thinners. Remembers all events. No vomiting. No seizure. Patient reports pain to back of head, cough, mid and lower back pain. No extremity injury or deformity. Patient ambulatory.. 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 - Social history:: Smoking status: Reported history of juuling and/or vaping. - Family history:: not pertinent. - Hospitalizations: : No recent hospitalization is reported. ROS: 14:49 Constitutional: Negative for fever, chills, and weight loss, Eyes: Negative for injury, rn pain, redness, and discharge, Neck: Positive for mild neck pain Cardiovascular: Negative for chest pain, palpitations, and edema, Respiratory: Negative for shortness of breath, cough, wheezing, and pleuritic chest pain, Abdomen/GI: Negative for abdominal pain, nausea, vomiting, diarrhea, and constipation, Back: Positive for lower and mid back pain MS/Extremity: Negative for injury and deformity, Skin: Negative for injury, rash, and discoloration, Neuro: Positive for posterior headache. No seizure. Exam: 14:49 Constitutional: This is a well developed, well nourished patient who is awake, alert, rn and in no acute distress. Ambulatory to room without assistance Head/Face: Normocephalic, atraumatic. Eyes: Periorbital areas with no swelling, redness, or edema. Neck: No midline cervical tenderness. Cardiovascular: Regular rate and rhythm. No pulse deficits. Respiratory: No increased work of breathing, no retractions or nasal flaring. Abdomen/GI: Soft, non-tender Back: No focal spinal tenderness. Mild paralumbar tenderness. MS/ Extremity: Pulses equal, no cyanosis. Neurovascular intact. Full, normal range of motion. Equal circumference. Neuro: Awake and alert, GCS 15, oriented to person, place, time, and situation. Vital Signs: 14:16 Pulse 112; Resp 17; Pulse Ox 100% ; Weight 116.12 kg; Height 5 ft. 2 in. ; Pain 8/10; ap3 14:17 BP 119 / 89; ap3 14:46 BP 114 / 96; Pulse 88; Resp 18; Pulse Ox 97% on R/A; me1 15:50 BP 114 / 92; Pulse 85; Resp 16; Pulse Ox 98% ; ko1 14:16 Body Mass Index 46.82 (116.12 kg, 157.48 cm) ap3 14:16 Pain Scale: Adult ap3 [place] Coma Score: 14:12 Eye Response: spontaneous(4). Motor Response: obeys commands(6). Verbal Response: ap3 oriented(5). Total: 15. 14:49 Eye Response: spontaneous(4). Motor Response: obeys commands(6). Verbal Response: rn oriented(5). Total: 15. 15:42 Eye Response: spontaneous(4). Motor Response: obeys commands(6). Verbal Response: rn oriented(5). Total: 15. MDM: 13:58 Patient medically screened. rn 15:42 Differential diagnosis: Contusion of Hematoma on Intracranial bleed- Concussion rn cerebral contusion. Data reviewed: vital signs, nurses notes, radiologic studies, CT scan, and as a result, I will discharge patient. Counseling: I had a detailed discussion with the patient and/or guardian regarding the historical points, exam findings, and any diagnostic results supporting the discharge/admit diagnosis, radiology results, the need for outpatient follow up, to return to the emergency department if symptoms worsen or persist or if there are any questions or concerns that arise at home. Special discussion: Based on the patient's history, exam and DX evaluation, there is no indication for emergent intervention or inpatient TX. It is understood by the patient/guardian that if the SXs persist or worsen they need to return immediately for re-evaluation. I discussed with the patient/guardian in detail that at this point there is no indication for admission to the hospital. It is understood, however, that if the symptoms persist or worsen the patient needs to return immediately for re-evaluation. ED course: No acute findings and CT imaging. Will discharge home with muscle relaxer and return precautions.. 06/01 14:16 Order name: CT Traumagram (Head C Spine CAP wo con); Complete Time: 15:38 rn Administered Medications: 14:43 Drug: HYDROcodone-acetaminophen PO 5 mg-325 mg 1 tabs PO once Route: PO; me1 14:43 Drug: Cyclobenzaprine PO 10 mg PO once Route: PO; me1 Disposition Summary: 06/01/23 15:44 Discharge Ordered Notes: Location: Home rn Problem: new rn Symptoms: have improved rn Condition: Stable rn Diagnosis - Unspecified injury of head, initial encounter rn - Contusion of lower back and pelvis rn Followup: rn - With: Private Physician - When: As needed - Reason: Recheck today's complaints, Re-evaluation by your physician Discharge Instructions: - Discharge Summary Sheet rn - Contusion rn - Head Injury, Adult rn Forms: - Medication Reconciliation Form rn - Thank You Letter rn - 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
--- NOTE | 2023-06-01 15:45 | ER ---
Nurse's Notes [facility] Name: Kizzy Zamarripa Age: 38 yrs Sex: Female : 1985 Arrival Date: 06/01/2023 Time: 13:52 Bed 8 Private MD: Diagnosis: Unspecified injury of head, initial encounter;Contusion of lower back and pelvis Presentation: 06/01 14:12 Chief complaint: Patient states: she slipped and fell last night on the ice, hitting ap3 her back and back of her head on the road. patient reports having pain in her head, neck and lower back. patient currently reports her pain as a 8/10 on the pain scale. Coronavirus screen: At this time, the client does not indicate any symptoms associated with coronavirus-19. Ebola Screen: No symptoms or risks identified at this time. Mechanism of Injury: The problem was sustained on a street or driveway, resulted from a fall, slipped. Initial Sepsis Screen: Does the patient meet any 2 criteria? No. Patient's initial sepsis screen is negative. Does the patient have a suspected source of infection? No. Patient's initial sepsis screen is negative. Risk Assessment: Do you want to hurt yourself or someone else? Patient reports no desire to harm self or others. Onset of symptoms was May 31, 2023. 14:12 Method Of Arrival: Ambulatory ap3 14:12 Acuity: JODI 3 ap3 Triage Assessment: 14:15 General: Appears uncomfortable, Behavior is calm, cooperative, appropriate for age. ap3 Pain: Complains of pain in back and neck. Neuro: Level of Consciousness is awake, alert, obeys commands, Oriented to person, place, time, situation, Appropriate for age. Neuro: Reports headache. Cardiovascular: Patient's skin is warm and dry. Respiratory: Airway is patent Respiratory effort is even, unlabored, Respiratory pattern is regular, symmetrical. 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 - Social history:: Smoking status: Reported history of juuling and/or vaping. - Family history:: not pertinent. - Hospitalizations: : No recent hospitalization is reported. Screenin:15 [facility] ED Fall Risk Assessment (Adult) History of falling in the last 3 months, ap3 including since admission Yes- single mechanical fall (1 pt) Confusion or Disorientation No (0 pts) Intoxicated or Sedated No (0 pts). Abuse screen: Denies threats or abuse. Nutritional screening: No deficits noted. Tuberculosis screening: No symptoms or risk factors identified. Assessment: 14:44 General: Appears uncomfortable, well groomed, well developed, well nourished, Behavior me1 is calm, cooperative, appropriate for age, Reports she slipped and fell last night on the ice, hitting her back and back of her head on the road. patient reports having pain in her head, neck and lower back. patient currently reports her pain as a 8/10 on the pain scale. Pain: Complains of pain in neck and back Pain does not radiate. Pain currently is 8 out of 10 on a pain scale. Quality of pain is described as sharp, Pain began suddenly, Is continuous. Neuro: Level of Consciousness is awake, alert, obeys commands, Oriented to person, place, time, situation, Appropriate for age. Cardiovascular: Capillary refill < 3 seconds Patient's skin is warm and dry. Respiratory: Airway is patent Respiratory effort is even, unlabored, Respiratory pattern is regular, symmetrical. Musculoskeletal: Reports pain in neck and back since falling last night.. Injury Description: slipped on ice and fell last night hitting her back and back of her head on the road. Vital Signs: 14:16 Pulse 112; Resp 17; Pulse Ox 100% ; Weight 116.12 kg; Height 5 ft. 2 in. ; Pain 8/10; ap3 14:17 BP 119 / 89; ap3 14:46 BP 114 / 96; Pulse 88; Resp 18; Pulse Ox 97% on R/A; me1 15:50 BP 114 / 92; Pulse 85; Resp 16; Pulse Ox 98% ; ko1 14:16 Body Mass Index 46.82 (116.12 kg, 157.48 cm) ap3 14:16 Pain Scale: Adult ap3 [place] Coma Score: 14:12 Eye Response: spontaneous(4). Motor Response: obeys commands(6). Verbal Response: ap3 oriented(5). Total: 15. 14:49 Eye Response: spontaneous(4). Motor Response: obeys commands(6). Verbal Response: rn oriented(5). Total: 15. 15:42 Eye Response: spontaneous(4). Motor Response: obeys commands(6). Verbal Response: rn oriented(5). Total: 15. ED Course: 13:56 Patient arrived in ED. ae5 13:57 Donnell Muller MD is Attending Physician. rn 14:14 Triage completed. ap3 14:15 Arm band placed on right wrist. ap3 14:36 CT Traumagram (Head C Spine CAP wo con) In Process Unspecified. EDMS 14:36 Kyra Almanzar, RN is Primary Nurse. me1 14:44 Patient has correct armband on for positive identification. Bed in low position. Call me1 light in reach. Side rails up X 1. Provided Education on: POC. Verbalized understanding. . 14:44 No provider procedures requiring assistance completed. Patient did not have IV access me1 during this emergency room visit. Administered Medications: 14:43 Drug: HYDROcodone-acetaminophen PO 5 mg-325 mg 1 tabs PO once Route: PO; me1 14:43 Drug: Cyclobenzaprine PO 10 mg PO once Route: PO; me1 Medication: 14:44 VIS not applicable for this client. me1 Outcome: 15:44 Discharge ordered by . rn 15:55 Discharged to home ambulatory, with family, ko1 15:55 Condition: stable 15:55 Discharge instructions given to patient, family, Instructed on discharge instructions, follow up and referral plans. Demonstrated understanding of instructions, follow-up care, 16:00 Patient left the ED. ko1 Signatures: Dispatcher [employer] EDOK Donnell Muller MD MD rn Prokisch, Amanda, RN RN ap3 Kamila Goodwin RN RN ko1 Kyra Almanzar, KIERAN RN me1 Victoria Brown ae5 Corrections: (The following items were deleted from the chart) 14:44 14:12 Chief complaint: Patient states: she slipped and fell last night on the ice, me1 hitting her back and back of her head on the road. patient reports having pain in her head, neck and lower back. patient currently reports her pain as a 8/10 on the pain scale. ap3
[2023-06-01 17:14] VITALS: BP 114/92; O2SAT 98
== END ==
LOC: ER 13:52
DX: S09.90XA Unspecified injury of head, initial encounter (principal); S30.0XXA Contusion of lower back and pelvis, initial encounter
CPT/HCPCS: 70450; 71250; 72125; 99283